=== PATIENT | male | born 1995 | race Caucasian/White ===

== ENCOUNTER 2016-08-24 01:49 | Emergency (ER) | payer SELFPAY ==
[2016-08-24 01:56] VITALS: TEMP 36.6; Ht 185.4 cm
--- NOTE | 2016-08-24 02:29 | EMERGENCY ROOM VISIT NOTE ---
History Report prepared by Spike: Jean Staley Under the Supervision of: Dr. Trudy Way D.O. First contact with patient: 02:12 Chief Complaint: SYNCOPE (NEAR SYNCOPE) Stated Complaint: DIZZINESS,FAINTED,NAUSEOUS,LIGHTHEADED History of Present Illness The patient is a 21 year old male who presents to the Emergency Room with complaints of near syncope that began an hour and a half ago. At this time, the patient and his fiance were at [employer], walking and shopping around. He then suddenly became very lightheaded and faint. He thought he was going to pass out. He notes that he had a headache all day, and that he did not eat a lot. He also did a lot of driving today as well. He is currently, very lethargic and numb. His headache is gone. Source of History: patient Onset: 1 and a half hours ago Position: other (global) Symptom Intensity: moderate Quality: other (Near Syncope) Timing: resolved Associated Symptoms: + weakness, No headache Review of Systems See HPI for pertinent positives & negatives. A total of 10 systems reviewed and were otherwise negative. Past Medical & Surgical Depression; ADHD Family History Diabetes mellitus Social History Smoking Status: Never Smoker Smokeless Tobacco Use: No Alcohol Use: occasionally Drug Use: none Marital Status: in relationship Housing Status: lives with family Occupation Status: employed Current/Historical Medications No Active Prescriptions or Reported Meds Allergies Coded Allergies: Raspberry (Verified Allergy, Unknown, throat swelling, 08/24/16) Physical Exam Vital Signs Date Time Temp Pulse Resp B/P (MAP) Pulse Ox O2 Delivery O2 Flow Rate FiO2 08/24/16 04:37 77 20 152/93 99 Room Air 08/24/16 04:10 66 08/24/16 03:30 79 20 145/90 98 Room Air 08/24/16 01:56 36.6 62 20 136/85 98 Room Air Physical Exam General: Appears lethargic. Slow to answer questions. HEENT: Head - normocephalic and atraumatic Pupils are equal, round, and reactive to light. Extraocular eye muscles are intact, and sclera are anicteric. Nose - moist nasal mucosa without discharge. Mouth - moist buccal mucosa. Oropharynx is nonerythematous and there is no tonsillar exudate or edema noted. Neck: Supple; no JVD, nuchal rigidity, cervical lymphadenopathy, or auscultated bruits. Heart: Regular rate and rhythm. There is a normal S1 and S2 with no murmurs, clicks, or gallops appreciated. Lungs: Clear to auscultation bilaterally with no wheezes, rales, or rhonchi. Abdomen: Soft, completely nontender, nondistended, with good bowel sounds. There are no palpable pulsatile masses or hepatosplenomegaly. There is no guarding, rigidity, or rebound noted. Extremities: No evidence of cyanosis, clubbing, or edema. There are easily palpable peripheral pulses. Skin: Slightly pale, warm and dry with good turgor and no rashes. Neuro: The patient seemed lethargic but was able to follow commands. He was alert and oriented. Medical Decision & Procedures ER Provider Diagnostic Interpretation: Radiology results as stated below per my review and the radiologist's interpretation: CT HEAD: No prior No acute intracranial findings. Possible posterior fossa arachnoid cysts. Radiologist: Amor Ellison M.D. Laboratory Results 08/24/16 02:45 Red Blood Count 5.44, Mean Corpuscular Volume 86.2, Mean Corpuscular Hemoglobin 29.4, Mean Corpuscular Hemoglobin Concent 34.1, Mean Platelet Volume 10.0, Neutrophils (%) (Auto) 55.5, Lymphocytes (%) (Auto) 34.6, Monocytes (%) (Auto) 7.5, Eosinophils (%) (Auto) 1.3, Basophils (%) (Auto) 0.3, Neutrophils # (Auto) 4.44, Lymphocytes # (Auto) 2.76, Monocytes # (Auto) 0.60, Eosinophils # (Auto) 0.10, Basophils # (Auto) 0.02 08/24/16 02:45 Test 08/24/16 02:45 08/24/16 03:30 White Blood Count 7.98 K/uL (4.8-10.8) Red Blood Count 5.44 M/uL (4.7-6.1) Hemoglobin 16.0 g/dL (14.0-18.0) Hematocrit 46.9 % (42-52) Mean Corpuscular Volume 86.2 fL (80-100) Mean Corpuscular Hemoglobin 29.4 pg (25-34) Mean Corpuscular Hemoglobin Concent 34.1 g/dl (32-36) Platelet Count 240 K/uL (130-400) Mean Platelet Volume 10.0 fL (7.4-10.4) Neutrophils (%) (Auto) 55.5 % Lymphocytes (%) (Auto) 34.6 % Monocytes (%) (Auto) 7.5 % Eosinophils (%) (Auto) 1.3 % Basophils (%) (Auto) 0.3 % Neutrophils # (Auto) 4.44 K/uL (1.4-6.5) Lymphocytes # (Auto) 2.76 K/uL (1.2-3.4) Monocytes # (Auto) 0.60 K/uL (0.11-0.59) Eosinophils # (Auto) 0.10 K/uL (0-0.5) Basophils # (Auto) 0.02 K/uL (0-0.2) RDW Standard Deviation 38.8 fL (36.4-46.3) RDW Coefficient of Variation 12.3 % (11.5-14.5) Immature Granulocyte % (Auto) 0.8 % Immature Granulocyte # (Auto) 0.06 K/uL (0.00-0.02) Anion Gap 8.0 mmol/L (3-11) Estimated GFR () 133.0 Estimated GFR (Non- 114.8 BUN/Creatinine Ratio 13.4 (10-20) Calcium Level 9.3 mg/dl (8.5-10.1) Thyroid Stimulating Hormone (TSH) 4.940 uIu/ml (0.300-4.500) Free Thyroxine 1.24 ng/dl (0.80-1.60) Urine Color YELLOW Urine Appearance CLEAR (CLEAR) Urine pH 5.5 (4.5-7.5) Urine Specific Morrice 1.034 (1.000-1.030) Urine Protein NEG (NEG) Urine Glucose (UA) NEG (NEG) Urine Ketones NEG (NEG) Urine Occult Blood NEG (NEG) Urine Nitrite NEG (NEG) Urine Bilirubin NEG (NEG) Urine Urobilinogen NEG (NEG) Urine Leukocyte Esterase NEG (NEG) Urine Opiates Screen NEG (NEG) Urine Methadone, Qualitative NEG (NEG) Urine Barbiturates NEG (NEG) Urine Phencyclidine (PCP) Level NEG (NEG) Ur Amphetamine/Methamphetamine NEG (NEG) MDMA (Ecstasy) Screen NEG (NEG) Urine Benzodiazepines Screen NEG (NEG) Urine Cocaine Metabolite NEG (NEG) Urine Marijuana (THC) NEG (NEG) Laboratory results per my review. Medications Administered Medications (Trade) Dose Ordered Sig/Ino Route Start Time Stop Time Status Last Admin Dose Admin Sodium Chloride 2,000 ml @ 999 mls/hr Q2H1M STAT IV 08/24/16 02:30 08/24/16 04:30 DC 08/24/16 02:50 999 MLS/HR Procedure Sodium Chloride 2000 ml @ 999 mls/hr IV ECG Indication: weakness Rate (beats per minute): 65 Rhythm: sinus rhythm Findings: no acute ischemic change, no ectopy ED Course 0212: Past medical records reviewed. The patient was evaluated in room B6. A complete history and physical exam was performed. An IV lock was initiated and labs were drawn as above. A twelve-lead EKG was obtained as described above. The patient will go for a CT scan of the brain I reviewed some laboratory studies with the patient and his fiance. 0230: Ordered Sodium Chloride 2000 ml @ 999 mls/hr IV. 0329: After evaluation, the patient is still the same, still lethargic. 0433: The patient is much more alert now. He is not as lethargic. He has a past medical history of depression and ADHD. He is supposed to be taking 4 different medications for his depression and ADHD. He will follow up with his PCP to get them. He is not taking them currently. 0500: Upon reevaluation, the patient was resting. I discussed findings and results with him. He verbalized agreement of the treatment plan. He was discharged home. Medical Decision The patient is a 21 year old male who presents to the ED with near syncope. Differential diagnosis includes hyperglycemia, dehydration, intracranial process , electrolyte imbalance, and drug overdose. I attest that I have personally reviewed the patient's current medication list. Patient was found to have normal blood pressure on screening and does not require follow-up. Laboratory Results: No leukocytosis, stable H&H, normal renal function, glucose 91, TSH 4.9, Free T- 4 1.2, toxicity screen negative, and specific gravity of urine high. CT scan of the brain was unremarkable. Urine tox screen was negative. There was some sign of dehydration with the elevated specific gravity and the urinalysis. The patient does have a history of ADHD and depression. He is not currently taking any medications. He plans to follow-up with his fianc's PCP. The patient was noted to be hypothyroid with an elevated TSH. Free T4 was normal. Impression Primary Impression: Lethargy Additional Impression: Hypothyroidism Scribe Attestation The scribe's documentation has been prepared under my direction and personally reviewed by me in its entirety. I confirm that the note above accurately reflects all work, treatment, procedures, and medical decision making performed by me. Departure Information Dispostion Home / Self-Care Prescriptions No Active Prescriptions or Reported Meds Referrals No Doctor, Assigned (PCP) Forms HOME CARE DOCUMENTATION FORM, IMPORTANT VISIT INFORMATION Patient Instructions ED Hypothyroidism, My [facility] Additional Instructions Rest. Take plenty of clear liquids Follow up with PCP about the thyroid and routine meds Problem Qualifiers Additional Impression: Hypothyroidism Hypothyroidism type: unspecified Qualified Codes: E03.9 - Hypothyroidism, unspecified
[2016-08-24] MEDS ORDERED: SODIUM CHLORIDE 0.9% 1000ML 2,000 ML IV STA (02:30)
[2016-08-24 03:02] LABS: BASO % 0.3 %; BASO ABS # 0.02 K/uL (0-0.2); COMPLETE YES; EOS % 1.3 %; HEMATOCRIT 46.9 % (42-52); IG% 0.8 %; LYMPH % 34.6 %; LYMPH ABS # 2.76 K/uL (1.2-3.4); MEAN CELL VOLUME 86.2 fL (80-100); MEAN CORPUSCULAR HEMOGLOBIN 29.4 pg (25-34); MEAN CORPUSCULAR HGB CONC 34.1 g/dl (32-36); MONO % 7.5 %; NEUT % 55.5 %; PLATELET COUNT 240 K/uL (130-400); RED BLOOD COUNT 5.44 M/uL (4.7-6.1); WHITE BLOOD COUNT 7.98 K/uL (4.8-10.8)
[2016-08-24 03:19] LABS: BLOOD UREA NITROGEN 13 mg/dl (7-18); BUN/CREATININE RATIO 13.4 (10-20); CALCIUM 9.3 mg/dl (8.5-10.1); CARBON DIOXIDE 30 mmol/L (21-32); CHLORIDE 104 mmol/L (98-107); CREATININE 0.95 mg/dl (0.60-1.40); GLUCOSE 91 mg/dl (70-99); POTASSIUM 3.6 mmol/L (3.5-5.1); SODIUM 142 mmol/L (136-145)
[2016-08-24 03:58] LABS: URINE APPEARANCE CLEAR (CLEAR); URINE BILIRUBIN NEG (NEG); URINE COLOR YELLOW; URINE NITRITE NEG (NEG); URINE PH 5.5 (4.5-7.5); URINE SPECIFIC GRAVITY 1.034 (1.000-1.030); UROBILINOGEN NEG (NEG)
[2016-08-24 04:03] LABS: MANUAL MICROSCOPIC REQUIRED? NO; REVIEW REQ? NO
[2016-08-24 04:19] LABS: BENZODIAZEPINE, URINE NEG (NEG); COCAINE,URINE NEG (NEG); PHENCYCLIDINE, URINE NEG (NEG)
[2016-08-24 04:37] VITALS: BP 152/93; PULSE 77; O2SAT 99
--- NOTE | 2016-08-24 07:00 | DIAGNOSTIC IMAGING REPORT ---
HEAD WITHOUT CONTRAST (CT) HISTORY: 21-year-old male presents with lethargy, dizziness and lightheadedness. TECHNIQUE: Multiple axial CT images of the head were obtained without contrast. CT DOSE: 614.27 mGy.cm COMPARISON: None. FINDINGS: No acute intracranial hemorrhage, midline shift, mass, large territorial ischemia or abnormal extra-axial collection. Note is made of a uzma cisterna magna, 2.5 x 4.4 cm in AP and transverse dimension. The calvarium is intact. The mastoid air cells and middle ear cavities are clear. There is rightward deviation of the nasal septum with mild ethmoid sinus disease. 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 IMPRESSION: No acute intracranial abnormality. The above report was generated using voice recognition software. It may contain grammatical, syntax or spelling errors. Electronically signed by: Lance Turk M.D. 08/24/2016 6:58 AM Dictated Date/Time: 08/24/2016 6:55 AM
== END 2016-08-24 04:56 | disposition home or self-care (01) ==
LOC: C.EDB 01:51
DX: R53.83 Other fatigue (principal); E03.9 Hypothyroidism, unspecified; Z83.3 Family history of diabetes mellitus; F32.9 Major depressive disorder, single episode, unspecified; F90.9 Attention-deficit hyperactivity disorder, unspecified type

== ENCOUNTER 2016-10-02 13:29 | Emergency (ER) | payer OTHER ==
[~2016-10-02] VITALS: Ht 188 cm; Wt 115.7 kg
[2016-10-02 13:33] VITALS: BP 132/77; PULSE 93; TEMP 36.6; O2SAT 97; Ht 188 cm; Wt 115.7 kg
--- NOTE | 2016-10-02 16:31 | EMERGENCY ROOM VISIT NOTE ---
ED Visit Note First contact with patient: 14:16 I assigned myself to evaluate this patient, however upon going to the room, found the patient was not there. I spoke with nursing staff who state that the patient left without being seen. I was therefore unable to evaluate this patient.
== END 2016-10-02 14:12 | disposition left against medical advice (07) ==
LOC: C.EDB 13:30 → C.EDC 14:12
DX: R10.9 Unspecified abdominal pain (principal); R07.9 Chest pain, unspecified

== ENCOUNTER 2016-11-08 21:37 | Emergency (ER) | payer OTHER ==
[~2016-11-08] VITALS: Ht 188 cm; Wt 115.7 kg
[2016-11-08 21:49] VITALS: BP 127/82; PULSE 79; TEMP 36.7; O2SAT 96; Ht 188 cm; Wt 115.7 kg
== END 2016-11-08 22:19 | disposition home or self-care (01) ==
LOC: C.EDB 21:39
DX: S09.90XA Unspecified injury of head, initial encounter (principal); W19.XXXA Unspecified fall, initial encounter